=== PATIENT | female | born 1955 | race Caucasian/White ===

== ENCOUNTER 2017-08-04 12:52 | Emergency (ER) | payer BC ==
[2017-08-04] MEDS ORDERED: Tetracaine 0.5% 2 ML Bottle ONE (12:53)
[2017-08-04 12:57] VITALS: BP 144/64
--- NOTE | 2017-08-04 13:13 | EDM.PDOC ---
ED HPI GENERAL MEDICAL PROBLEM - General Chief Complaint: Eye Problems Stated Complaint: R)eye irritation Time Seen by Provider: 08/04/17 13:03 Source of Information: Reports: Patient History Limitations: Reports: No Limitations - History of Present Illness INITIAL COMMENTS - FREE TEXT/NARRATIVE: Patient presents with irritation to her right eye. Awoke this morning with both eyes hurting, flushed them but the right eye continues to be red, irritated and feels pain to the right lateral region. "feels gravelly". She was out raking yesterday, unsure if got anything in her eye. She notes it has been tearing more, is sensitive to light. Patient has not had any recent colds. No exposure to anyone with pink eye. Onset: Today, Sudden Duration: Hour(s):, Getting Worse Location: Reports: Other (right eye) Quality: Reports: Burning Severity: Mild Associated Symptoms: Reports: No Other Symptoms - Related Data Allergies Allergy/AdvReac Type Severity Reaction Status Date / Time No Known Allergies Allergy Verified 08/04/17 12:58 Home Meds: Home Meds Fosinopril Sodium [Fosinopril Sodium] 20 mg PO DAILY 08/04/17 [History] Hydrochlorothiazide [Hydrochlorothiazide] 25 mg PO DAILY 08/04/17 [History] Insulin Aspart [NovoLOG] 12 unit PO WITHMEALSANDBED 08/04/17 [History] Insulin Glarg,Human.Rec.Analog [LantUS Solostar] 52 units SQ BEDTIME 08/04/17 [ History] PARoxetine HCl [Paroxetine HCl] 20 mg PO DAILY 08/04/17 [History] Simvastatin [Zocor] 40 mg PO DAILY 08/04/17 [History] sitaGLIPtin Phos/Metformin HCl [Janumet 50-1,000 MG] 1 tab PO DAILY 08/04/17 [ History] Past Medical History Cardiovascular History: Reports: High Cholesterol, Hypertension Psychiatric History: Reports: Depression Endocrine/Metabolic History: Reports: Diabetes, Type II Social & Family History - Tobacco Use Smoking Status *Q: Unknown Ever Smoked ED ROS GENERAL - Review of Systems Review Of Systems: ROS reveals no pertinent complaints other than HPI. ED EXAM GENERAL W FULL EYE - Physical Exam Exam: See Below Exam Limited By: No Limitations General Appearance: Alert, WD/WN, No Apparent Distress Eye Exam: Right Eye: Corneal Abrasion, EOMI, Foreign Body, PERRL Eyelids: Bilateral: Normal Appearance Conjunctiva & Sclera: Right: Discharge (clear tearing to right eye), Injected Pupils: Normal Accommodation Pupillary Size: Bilateral: 4 mm Pupillary Reaction: Bilateral: Brisk Ears: Normal External Exam, Normal TMs Nose: Normal Inspection, Normal Mucosa Throat/Mouth: Normal Inspection, Normal Oropharynx Head: Normocephalic Neck: Normal Inspection, Supple, Non-Tender Respiratory/Chest: No Respiratory Distress, Lungs Clear, Normal Breath Sounds Cardiovascular: Regular Rate, Rhythm ED EYE w/ Add Procedure - Eye Procedure Alcaine Drops Administered: Yes Eye FB Removal: Removal w/ Cotton Swab Antibiotic Oinment/Drps Admin: Right Eye Progress: Small corneal abrasion noted to right lower scleral region. Course - Vital Signs Last Recorded V/S: Last Vital Signs Temp 96.6 F 08/04/17 12:54 Pulse 80 08/04/17 12:54 Resp 20 08/04/17 12:54 BP 144/64 H 08/04/17 12:54 Pulse Ox 100 08/04/17 12:54 - Orders/Labs/Meds Orders: Active Orders 24 hr Category Date Time Status Ciprofloxacin [Ciloxan 0.3% Ophth Soln] Med 08/04/17 14:00 Active 1 ml EYERT TID Medication Orders Ciprofloxacin (Ciloxan 0.3% Ophth Soln) 1 ml EYERT TID [facility] Meds: Medications Generic Name Dose Route Start Last Admin Trade Name Freq PRN Reason Stop Dose Admin Ciprofloxacin 1 ml 08/04/17 14:00 Ciloxan 0.3% Ophth Soln EYERT TID [facility] Departure - Departure Time of Disposition: 13:22 Disposition: Home, Self-Care 01 Condition: Good Clinical Impression: Corneal abrasion - Discharge Information Forms: ED Department Discharge Additional Instructions: 1. Protect eye from sun 2. Ciloxan 0.3% 3 drops to right eye three times a day for 7 days 3. Follow up with radioactive waste disposal dispatcher or usual provider if ongoing concerns. - My Orders Last 24 Hours: My Active Orders 08/04/17 14:00 Ciprofloxacin [Ciloxan 0.3% Ophth Soln] 1 ml EYERT TID - Assessment/Plan Last 24 Hours: My Active Orders 08/04/17 14:00 Ciprofloxacin [Ciloxan 0.3% Ophth Soln] 1 ml EYERT TID
[2017-08-04] MEDS ORDERED: Diphtheria,Pertussis(Acell),Tetanus Vaccine 0.5 ML Syringe IM ONE (13:20)
[2017-08-04] MEDS ORDERED: Ciprofloxacin 0.3% Ophth Soln 2.5 ML Bottle EYERT SCH (14:00)
== END 2017-08-04 13:31 | disposition home or self-care (01) ==
LOC: CC.ED 12:52
DX: T15.01XA Foreign body in cornea, right eye, initial encounter (principal); Z23 Encounter for immunization; E11.9 Type 2 diabetes mellitus without complications; E78.00 Pure hypercholesterolemia, unspecified; I10 Essential (primary) hypertension; F32.9 Major depressive disorder, single episode, unspecified; Z79.4 Long term (current) use of insulin; Z79.899 Other long term (current) drug therapy
CPT/HCPCS: 90471; 90715; 99282; A9270; 65205